=== PATIENT | male | born 1960 | race Caucasian/White ===

== ENCOUNTER 2025-07-27 11:49 | Outpatient (REF) | payer MEDICARE, SELFPAY ==
[2025-07-27 14:46] LABS: Anion Gap 12.6 mmol/L (3-11); BUN 21 mg/dL (7-18); CO2 25.4 mmol/L (21.0-32.0); Calcium 10.0 mg/dL (8.5-10.1); Calculated LDL 89 mg/dL (<100); Chloride 99 mmol/L (98-107); Cholesterol 203 mg/dL (<200); Estimated GFR 83.01 (mL/min/1.73m2); Glucose 236 mg/dL (74-106); HDL Cholesterol 38 mg/dL (>or=40); Potassium 4.3 mmol/L (3.5-5.1); Sodium 137 mmol/L (136-145); Triglyceride 381 mg/dL (<150)
[2025-07-27 22:10] LABS: PSA, Screening 0.5 ng/mL (<=4.5)
== END 2025-07-27 11:50 | disposition home or self-care (01) ==
LOC: NCHCN 11:49
PROVIDERS: Visit Provider Family Medicine
DX: E78.5 Hyperlipidemia, unspecified (principal); I10 Essential (primary) hypertension; Z12.5 Encounter for screening for malignant neoplasm of prostate
CPT/HCPCS: 80048; 80061; 84153